=== PATIENT | male | born 1995 | race Caucasian/White ===

== ENCOUNTER 2022-04-03 12:50 | Emergency (ER) | payer BC, OTHER ==
[~2022-04-03] VITALS: Ht 180.3 cm; Wt 111.1 kg
[2022-04-03] MEDS ORDERED: ROBITUSSIN COU237 M2 PO (14:05)
--- NOTE | 2022-04-03 21:30 | EKG ---
[facility] [address] [facility] [place], [place] [address] Signed Sinus rhythm with marked sinus arrhythmia Otherwise normal ECG No previous ECGs available Confirmed by HANSA MALDONADO MD ([id number] on 04/03/2022 9:30:35 PM Electronically Signed By: HANSA MALDONADO MD 04/03/222129 PATIENT NAME: DAIJADELFINO Electrocardiogram DATE OF : [birth year] PHYSICIAN: HANSA MALDONADO MD REPORT #: [id number] REPORT IS CONFIDENTIAL AND NOT TO BE RELEASED WITHOUT AUTHORIZATION
== END 2022-04-03 14:15 | disposition home or self-care (01) ==
LOC: ED 12:50
DX: J06.9 Acute upper respiratory infection, unspecified (principal); Z20.822 Contact with and (suspected) exposure to COVID-19
CPT/HCPCS: 87502; 93005; 93010; 94640; 94664; C9803; U0003

== ENCOUNTER 2022-09-19 10:20 | Emergency (ER) | payer BC, OTHER ==
[~2022-09-19] VITALS: Ht 180.3 cm; Wt 109.3 kg
[~2022-09-19 10:20] MED LIST: ROBITUSSIN COU237 M2 PO
[2022-09-19] MEDS ORDERED: AMPHETAMINE SAL10 MG PO (18:10)
== END 2022-09-19 13:05 | disposition home or self-care (01) ==
LOC: ED 10:20
DX: S60.221A Contusion of right hand, initial encounter (principal); W22.8XXA Striking against or struck by other objects, initial encounter; Z79.899 Other long term (current) drug therapy
CPT/HCPCS: 73130; 80053; 85025; 99283-25

== ENCOUNTER 2023-02-03 22:52 | Emergency (ER) | payer BC, OTHER ==
[~2023-02-03] VITALS: Ht 180.3 cm; Wt 118.5 kg
[~2023-02-03 22:52] MED LIST changes: +AMPHETAMINE SAL10 MG PO
[2023-02-03] MEDS ORDERED: VITAMIN D21250 MCG PO (23:08)
[2023-02-03] MEDS ORDERED: TRUVADA 200 MG1 EACH PO (23:09)
== END 2023-02-03 23:52 | disposition home or self-care (01) ==
LOC: ED 22:52
DX: S06.0XAA Concussion with loss of consciousness status unknown, initial encounter (principal); W22.8XXA Striking against or struck by other objects, initial encounter; Z79.899 Other long term (current) drug therapy
CPT/HCPCS: 70450; 99283-25

== ENCOUNTER 2024-06-17 20:39 | Emergency (ER) | payer OTHER ==
[~2024-06-17] VITALS: Ht 180.3 cm; Wt 112.0 kg
[2024-06-17] MEDS ORDERED: SODIUM CHLORIDE 0.9% 1,000 ML IV ONE (21:00)
[2024-06-17] MEDS ORDERED: SUMAtriptan succinate 6 MG/0.5 ML VIAL SUB-Q ONE (21:00)
[2024-06-17] MEDS ORDERED: diphenhydrAMINE HCL 50 MG/ML VIAL IV ONE (21:00)
[2024-06-17] MEDS ORDERED: METOCLOPRAMIDE HCL 10 MG/2 ML SDV IV ONE (21:00)
[2024-06-17] MEDS ORDERED: KETOROLAC TROMETHAMINE 30 MG/ML VIAL IV ONE (21:00)
[2024-06-17] MEDS ORDERED: ondansetron HCL 4 MG/2 ML VIAL IV ONE (21:15)
[2024-06-17] MEDS ORDERED: PROMETHAZINE HCL 25 MG SUPP. HOME.PACK PR ONE (21:45)
[2024-06-17 21:55] VITALS: BP 144/104
[2024-06-17] MEDS ORDERED: PROMETHAZINE HCL 25 MG HOME.PACK PO ONE (22:00)
== END 2024-06-17 21:55 | disposition home or self-care (01) ==
LOC: ED 20:39
DX: G43.909 Migraine, unspecified, not intractable, without status migrainosus (principal); Z79.899 Other long term (current) drug therapy
CPT/HCPCS: 96374; 96375; 99283-25; J1200; J1885; J2405; J2765; J3030; J7030

== ENCOUNTER 2024-09-24 06:02 | Emergency (ER) | payer OTHER ==
[~2024-09-24] VITALS: Ht 180.3 cm; Wt 122.0 kg
[~2024-09-24 06:02] MED LIST changes: +ATOMOXETINE HCL40 MG PO; +BUTALB-ACETAMI1 EAC2 PO; +DEXTROAMP-AMPHE10 MG PO; +EMTRICITABINE-1 EACH PO; +IMITREX50 MG PO; +ONDANSETRON ODT8 MG SL; +PENICILLIN V P500 MG PO; +PROMETHAZINE HC25 M1 PO; +PROMETHEGAN25 MG PR; +TRAMADOL HCL50 MG PO; +TRUVADA 200 MG1 EACH PO; +VITAMIN D21250 MCG PO
[2024-09-24] MEDS ORDERED: METOCLOPRAMIDE HCL 10 MG/2 ML SDV IV ONE (06:15)
[2024-09-24] MEDS ORDERED: diphenhydrAMINE HCL 50 MG/ML VIAL IV ONE (06:15)
[2024-09-24] MEDS ORDERED: KETOROLAC TROMETHAMINE 30 MG/ML VIAL IV ONE (06:30)
[2024-09-24] MEDS ORDERED: LACTATED RINGER'S 1,000 ML IV ONE (06:30)
[2024-09-24] MEDS ORDERED: SUMAtriptan succinate 6 MG/0.5 ML VIAL SUB-Q ONE (06:30)
[2024-09-24] MEDS ORDERED: METOPROLOL TARTRATE 5 MG/5 ML VIAL IV ONE ×2 (07:00→07:15)
[2024-09-24 07:14] LABS: BASOPHILS 2.7 % (0-2); EOSINOPHILS 3.1 % (0-6); HEMATOCRIT 45.7 % (35.0-50.0); HEMOGLOBIN 15.2 g/dL (12.0-18.0); LYMPHOCYTES 18.7 % (24-44); MCH 28.8 (27-36); MCHC 33.2 g/dl (30-36); MCV 86.8 fl (81-99); MONOCYTES 6.4 % (0-12); NEUTROPHILS 69.1 % (39-80); PLATELET COUNT 267 K/uL (140-440); RBC 5.27 M/ul (4.3-5.7); RDW 13.3 (10.5-15.0)
[2024-09-24 07:25] LABS: ALBUMIN 4.1 g/dL (3.4-5.0); ALBUMIN/GLOBULIN RATIO 1.03 (1.1-2.4); ANION GAP 11.4 (7-21); BILIRUBIN, TOTAL 0.4 ng/dL (0.2-1.0); BUN/CREATININE RATIO 9.24 (6.0-28.6); CREATININE, SERUM 1.19 mg/dL (0.70-1.30); POTASSIUM 3.4 mmol/L (3.5-5.1); PROTEIN, TOTAL 8.1 g/dL (6.4-8.2)
[2024-09-24 08:54] VITALS: BP 122/98
--- NOTE | 2024-09-25 19:21 | EKG ---
[facility] [address] [facility] [facility] [place] [address] Signed Atrial fibrillation with rapid ventricular response Abnormal ECG When compared with ECG of 04-DEC-2023 10:09, Atrial fibrillation has replaced Sinus tachycardia Confirmed by Mallorie Villalobos MD ([id number]) on 09/25/2024 7:21:21 PM Electronically Signed By: MALLORIE VILLALOBOS MD 09/25/241920 PATIENT NAME: DELFINO CHOE Electrocardiogram DATE OF : [birth year] PHYSICIAN: MALLORIE VILLALOBOS MD REPORT #: [id number] REPORT IS CONFIDENTIAL AND NOT TO BE RELEASED WITHOUT AUTHORIZATION
== END 2024-09-24 08:52 | disposition home or self-care (01) ==
LOC: ED 06:02
PROVIDERS: Family Medicine
DX: G43.909 Migraine, unspecified, not intractable, without status migrainosus (principal); R00.0 Tachycardia, unspecified; Z79.899 Other long term (current) drug therapy
CPT/HCPCS: 36415; 80053; 83735; 84443; 85025; 93005; 93010; 96374; 96375; 99283-25; J1200; J1885; J2765; J3030; J7121

== ENCOUNTER 2024-12-27 01:07 | Emergency (ER) | payer OTHER ==
[~2024-12-27] VITALS: Ht 180.3 cm; Wt 122.0 kg
[2024-12-27] MEDS ORDERED: LIDOCAINE & ANTACID 35 ML BTL PO ONE (01:30)
[2024-12-27] MEDS ORDERED: SUCRALFATE 1 GM TAB PO ONE (01:30)
[2024-12-27] MEDS ORDERED: PANTOPRAZOLE SODIUM 40 MG TABEC PO ONE (01:30)
[2024-12-27] MEDS ORDERED: CARAFATE1 GM PO (01:36)
[2024-12-27] MEDS ORDERED: PROTONIX40 MG PO (01:36)
[2024-12-27 01:50] VITALS: BP 156/98
== END 2024-12-27 01:52 | disposition home or self-care (01) ==
LOC: ED 01:07
DX: K21.9 Gastro-esophageal reflux disease without esophagitis (principal); G43.909 Migraine, unspecified, not intractable, without status migrainosus; Z79.899 Other long term (current) drug therapy
CPT/HCPCS: 99283; A9270